=== PATIENT | female | born 1990 | race Caucasian/White ===

== ENCOUNTER 2020-12-17 15:58 | Emergency (ER) | payer MEDICAID ==
[~2020-12-17] VITALS: Ht 162.6 cm; Wt 65.0 kg
[2020-12-17 16:21] VITALS: BP 130/76
[2020-12-17] MEDS ORDERED: CEPH500C2 MT (18:31)
[2020-12-17] MEDS ORDERED: KETOROLAC 30MG/ML VIAL IV ONE (18:45)
== END 2020-12-17 18:54 | disposition home or self-care (01) ==
LOC: ER 15:58
DX: N63.20 Unspecified lump in the left breast, unspecified quadrant (principal)
CPT/HCPCS: 71045; 81025; 93005; 99283

== ENCOUNTER 2024-02-28 19:26 | Emergency (ER) | payer MEDICAID, OTHER ==
[~2024-02-28] VITALS: Ht 165.1 cm; Wt 70.7 kg
[~2024-02-28 19:26] MED LIST: CEPH500C2 MT
[2024-02-28 20:08] VITALS: O2SAT 99
[2024-02-28] MEDS ORDERED: IBUP-2028 MT (21:58)
[2024-02-28] MEDS: IBUPROFEN 400MG TABLET PO ONE (22:00)
[2024-02-28 22:17] VITALS: BP 122/86; PULSE 74; RESP 18; TEMP 98.6
== END 2024-02-28 22:24 | disposition home or self-care (01) ==
LOC: ER 19:26
DX: S93.401A Sprain of unspecified ligament of right ankle, initial encounter (principal); W18.39XA Other fall on same level, initial encounter; Y93.89 Activity, other specified; Y92.89 Other specified places as the place of occurrence of the external cause; Y99.8 Other external cause status
CPT/HCPCS: 73610; 99283

== ENCOUNTER 2024-07-27 15:45 | Emergency (ER) | payer MEDICAID, OTHER ==
[~2024-07-27] VITALS: Ht 157.5 cm; Wt 63.0 kg
[~2024-07-27 15:45] MED LIST changes: +IBUP-2028 MT
[2024-07-27 15:48] VITALS: O2SAT 100
[2024-07-27 15:53] VITALS: BP 141/79; PULSE 102; RESP 18; O2SAT 99
[2024-07-27 16:32] LABS: CHLORIDE 101 mEq/L (98-107); POTASSIUM 3.3 mEq/L (3.5-5.1); SODIUM 135 mEq/L (136-145)
[2024-07-27 16:33] LABS: CALCIUM 9.9 mg/dL (8.7-10.4); CARBON DIOXIDE 26 mEq/L (21-32)
[2024-07-27 16:34] LABS: HEMOGLOBIN. 13.3 g/dL (12.0-16.0); MEAN CORPUSCULAR HEMOGLOBIN 30.2 pg (28.0-32.0); MEAN CORPUSCULAR HGB CONC 34.2 g/dL (31.0-37.0); MEAN CORPUSCULAR VOLUME 88.4 fL (81.0-99.0); MEAN PLATELET VOLUME 6.8 fl (7.4-10.4); PLATELET 352 x1000/uL (130-400); RED BLOOD CELL COUNT 4.41 mill/uL (4.2-5.4); RED CELL DISTRIBUTION WIDTH 13.8 % (11.6-14.6); WHITE BLOOD COUNT 10.9 x1000/uL (4.5-11.0)
[2024-07-27 16:35] LABS: DIFFERENTIAL COMMENT 1
[2024-07-27 16:38] LABS: CREATININE 0.5 mg/dL (0.6-1.0); GLUCOSE 111 mg/dL (70-105); UREA NITROGEN BLOOD 7 mg/dL (9-23)
[2024-07-27 16:40] LABS: ALANINE AMINOTRANSFERASE 31 IU/L (10-49); ALBUMIN 4.2 g/dL (3.2-4.8); ASPARTATE AMINOTRANSFERASE 31 IU/L (<34); BILIRUBIN DIRECT 0.2 mg/dL (<=3.0)
[2024-07-27 16:41] LABS: BILIRUBIN TOTAL 0.8 mg/dL (0.1-1.0); PROTEIN TOTAL 7.5 g/dL (6.0-8.3)
[2024-07-27 16:48] LABS: PLATELET ESTIMATE NORMAL
[2024-07-27 17:14] LABS: B-HCG QUANTITATIVE 99268 mIU/mL (<3)
[2024-07-27 19:25] LABS: CLARITY URINE CLEAR (CLEAR); COLOR URINE YELLOW (YELLOW); GLUCOSE URINE NEGATIVE (NEGATIVE); KETONES URINE 3+ (NEGATIVE); LEUKOCYTE ESTERASE URINE NEGATIVE (NEGATIVE); NITRITE URINE NEGATIVE (NEGATIVE); OCCULT BLOOD URINE 2+ (NEGATIVE); PH URINE 5.5 (4.5-8.0); PROTEIN URINE NEGATIVE (NEGATIVE); SPECIFIC GRAVITY URINE 1.022 (1.005-1.030)
[2024-07-27 19:39] LABS: WBC URINE 0-2 /hpf (0-2)
[2024-07-27 19:40] LABS: BACTERIA URINE TRACE; SQUAMOUS EPITHELIAL CELL URINE 1+ /lpf (RARE/1+)
[2024-07-27 20:15] VITALS: TEMP 98.7
[2024-07-27] MEDS ORDERED: ACETAMINOPHEN 325MG TABLET PO ONE (20:15)
[2024-07-27] MEDS ORDERED: MAGNESIUM/ALUMINUM HYDROXIDE/SIMETHICONE 30ML UDC PO ONE (20:15)
[2024-07-27] MEDS: ACETAMINOPHEN 325MG TABLET PO NR (20:15)
[2024-07-27] MEDS: MAGNESIUM/ALUMINUM HYDROXIDE/SIMETHICONE 30ML UDC PO NR (20:44)
[2024-07-27] MEDS: POTASSIUM CHLORIDE 20MEQ/PACKET PO ONE (20:44)
== END 2024-07-27 23:37 | disposition home or self-care (01) ==
LOC: ER 15:45
DX: O26.891 Other specified pregnancy related conditions, first trimester (principal); R19.7 Diarrhea, unspecified; R10.2 Pelvic and perineal pain; Z3A.10 10 weeks gestation of pregnancy
CPT/HCPCS: 36415; 76801; 80048; 80076; 81003; 84702; 85025; 99284